=== PATIENT | female | born 1970 | race Caucasian/White ===

== ENCOUNTER 2019-02-14 09:12 | Emergency (ER) | payer BC, MEDICAID ==
[~2019-02-14] VITALS: Ht 167.6 cm; Wt 97.5 kg
[~2019-02-14 09:12] MED LIST: IBUPROFEN600 MG ORAL; IBUPROFEN800 M1 PO; NORCO 5-325 TA1 EACH ORAL
--- NOTE | 2019-02-14 09:30 | NUR ---
ED Nurse Note: pt presents to ED with R elbow and L forearm & wrist pain after sustaining a fall on Wednesday. pt reports tripping on a step and landing onto her arms. pt reports 5/10 px that worsens with movement and palpation. pt denies LOC, visual disturbances or dizziness prior to the fall. 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
[2019-02-14 09:35] VITALS: BP 130/92
--- NOTE | 2019-02-14 09:56 | Emergency Room Report ---
History of Present Illness General Chief Complaint: Upper Extremity Injury Source: Patient Present Illness HPI Patient presents with a fall that occurred on Wednesday Patient was going up some stairs when she had a fall hitting the left wrist and also the Right elbow The pain has been ongoing since then Pain to the left wrist is worse with any touch or movement Patient's discomfort to the right elbow is just at the distal humeral area However able to move her right arm in full flexion extension and supination Allergies: Coded Allergies: GLUTEN (Verified Allergy, Unknown, 02/14/19) Patient History Past Medical History: see triage record Reviewed Nursing Documentation: PMH: Agreed; PSxH: Agreed Nursing Documentation-PMH Past Medical History: No History, Except For Review of Systems All Other Systems: negative except mentioned in HPI Physical Exam Vital Signs Date Time Temp Pulse Resp B/P (MAP) Pulse Ox O2 Delivery O2 Flow Rate FiO2 02/14/19 09:17 98.4 72 17 130/92 (105) 99 Room Air Sp02 EP Interpretation: reviewed, normal General Appearance: well appearing, no apparent distress Head: normocephalic, atraumatic Eyes: bilateral eye PERRL, bilateral eye EOMI ENT: normal pharynx Neck: supple Respiratory: lungs clear, no respiratory distress, no retraction Cardiovascular #1: regular rate, rhythm Gastrointestinal: non tender, soft Musculoskeletal: other - Swelling to the left distal wrist dorsally pain with slight touch or any attempt of flexion or extension, vascularly and neurovascularly intact otherwise, right arm has full mobility Neurologic: alert, oriented x3 Skin: other - As above Lymphatic: no adenopathy Procedures Splinting Splinting : Consent: Verbal Location: The wrist Pre-Made Type: velcro Splint: volar Pre-Proc Neuro Vasc Exam: normal Post-Proc Neuro Vasc Exam: normal Patient Tolerated: Well Complications: None Medical Decision Making Diagnostic Impression: Primary Impression: Injury of upper extremity ER Course Given the history and exam x-ray imaging is obtained of the left wrist no obvious acute fractures are seen Given the patient's discomfort and clinical exam a splint is applied and the patient is stable for close outpatient follow-up Other X-Ray Diagnostic Results Other X-Ray Diagnostic Results : X-Ray ordered: Left wrist # of Views/Limited Vs Complete: 3 View Indication: Pain EP Interpretation: Yes Interpretation: no dislocation, no soft tissue swelling, no fractures Impression: No acute disease Electronically Signed by: José Luis Castro DO Last Vital Signs Date Time Temp Pulse Resp B/P (MAP) Pulse Ox O2 Delivery O2 Flow Rate FiO2 02/14/19 09:35 98.4 17 130/92 99 Room Air 02/14/19 09:17 72 Status: improved Disposition: HOME, SELF-CARE Condition: Improved Scripts Ibuprofen* (MOTRIN*) 600 Mg Tablet 600 MG ORAL Q8H PRN for For Pain, #20 TAB 0 Refills Prov: José Luis Castro DO 02/14/19 Additional Instructions: Patient is provided with the discharge instructions notified to follow up with primary doctor in the next 2-3 days otherwise return to the er with any worsening symptoms. Please note that this report is being documented using [email or web address] technology. This can lead to erroneous entry secondary to incorrect interpretation by the dictating instrument. José Luis Castro DO Feb 14, 2019 09:56
[2019-02-14] MEDS ORDERED: IBUPROFEN600 MG ORAL (10:43)
--- NOTE | 2019-02-14 10:45 | NUR ---
ED Nurse Note: wrist splint and THERESA bandage applied onto pt's L wrist and forearm without any complications
[2019-02-14 10:52] VITALS: BP 132/86
--- NOTE | 2019-02-14 10:52 | NUR ---
ED Nurse Note: Pt cleared by health care Provider for discharge. DC instructions/prescription was given and explained to pt and verbalized understanding of teachings. All medical deviecs such as ID band removed. Pt is AAO x4, ambulatory and left with all personal belongings.
--- NOTE | 2019-02-14 12:06 | Diagnostic Imaging Report ---
Clinical Indication:Traumatic pain from fall one day ago Technique: 3 views of the left wrist Comparison: None Findings: Bony alignment is normal. No acute fractures. No dislocations. Joint spaces are preserved. Impression: Negative
== END 2019-02-14 10:55 | disposition home or self-care (01) ==
LOC: EMR 09:57
DX: S69.92XA Unspecified injury of left wrist, hand and finger(s), initial encounter (principal); W19.XXXA Unspecified fall, initial encounter; Y92.9 Unspecified place or not applicable; M25.521 Pain in right elbow
CPT/HCPCS: 29125; 99283

== ENCOUNTER 2020-02-15 09:10 | Emergency (ER) | payer BC ==
[~2020-02-15] VITALS: Ht 170.2 cm; Wt 108.9 kg
--- NOTE | 2020-02-15 09:20 | NUR ---
ED Nurse Note: Patient ambulated to ED due to bilateral eye irritation x 2 days. Patient reports L eye pain, blurring of vision and tearing. Pt is AOx4, calm and cooperative to care, VSS, on RA, afebrile on triage.
[2020-02-15] MEDS ORDERED: Fluorescein Strips ONE (09:43)
[2020-02-15] MEDS ORDERED: Tetracaine 0.5% Opth 4ml Soln ONE (09:43)
[2020-02-15] MEDS ORDERED: Tetracaine 0.5% Opth 4ml Soln LEFT EYE ONE (09:45)
[2020-02-15] MEDS ORDERED: Fluorescein Strips LEFT EYE ONE (09:45)
--- NOTE | 2020-02-15 09:45 | NUR ---
ED Nurse Note: ERMD at bedside.
[2020-02-15 09:49] VITALS: BP 136/88
[2020-02-15] MEDS ORDERED: CILOXAN5 ML OP (10:04)
[2020-02-15] MEDS ORDERED: OLOPATADINE HCL5 ML OP (10:04)
[2020-02-15 10:16] VITALS: BP 128/84
--- NOTE | 2020-02-15 10:16 | NUR ---
ER DISCHARGE NOTE: Patient is cleared to be discharged per ERMD, pt is aox4, on room air, with stable vital signs. pt was given dc and prescription instructions, pt was able to verbalize understanding, pt id band removed. pt is able to ambulate with steady gait. pt took all belongings.
--- NOTE | 2020-02-15 11:25 | Emergency Room Report ---
History of Present Illness General Chief Complaint: Eye Problems Source: Patient Present Illness HPI Patient is a 49-year-old female who presents for increased left-sided high discomfort. Prior history of contact lens use. Reports having increased left- sided eye pain associate with increased tearing. Denies any eye discharge. Reports having increased eye pain. Patient denies any vomiting reports having m oderate headache. Reported history of gluten allergy. Denies any visual changes. Increased pain with movement. Had not been having any double vision. Denies any visual field loss. 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 COVID-19 Screening: Negative COVID-19 COVID-19 Testing Source: 3 weeks ago Patient History Past Medical History: see triage record Now: No Reviewed Nursing Documentation: PMH: Agreed; PSxH: Agreed Nursing Documentation-PMH Past Medical History: No History, Except For Review of Systems All Other Systems: negative except mentioned in HPI Physical Exam Vital Signs Date Time Temp Pulse Resp B/P (MAP) Pulse Ox O2 Delivery O2 Flow Rate FiO2 02/15/20 09:17 97.9 75 16 136/88 (104) 94 Room Air General Appearance: well appearing, no apparent distress, alert, GCS 15 Head: normocephalic, atraumatic Eyes: bilateral eye other - conjunctival injection left greater than right, pupil reactive intraocular pressure 18 mm no fluorescein uptake ENT: hearing grossly normal, normal voice Neck: full range of motion, supple Respiratory: no respiratory distress, speaking full sentences Musculoskeletal: no calf tenderness Neurologic: normal gait Psychiatric: mood/affect normal Skin: no rash Medical Decision Making Diagnostic Impression: Primary Impression: Conjunctivitis ER Course Patient presented for left eye pain. Differential diagnosis include was not limited to conjunctivitis, glaucoma, foreign body, corneal abrasion, iritis among others. Patient has a benign exam and does not appear to require any imaging or laboratory testing at this time. Patient has nonfocal neurologic exam. I appears to be somewhat red. Pupil is reactive. Patient had improvement in pain with topical anesthetics. Patient was advised to follow-up with ophthalmology in the next 1 to 2 days for recheck. She was given prescription for medications for possible contact lens related infection. Last Vital Signs Date Time Temp Pulse Resp B/P (MAP) Pulse Ox O2 Delivery O2 Flow Rate FiO2 02/15/20 10:16 97.9 78 17 128/84 98 Room Air Disposition: HOME, SELF-CARE Condition: Stable Scripts Ciprofloxacin HCl (Ciloxan) 5 Ml Drops 1 DROP OP EVERY 6 HOURS, #5 ML Prov: Bakari Alamo MD 02/15/20 Olopatadine HCl (Olopatadine HCl) 5 Ml Drops 5 ML OP TWICE A DAY, #5 ML Prov: Bakari Alamo MD 02/15/20 Referrals: NOT CHOSEN IPA/,REFERRING (PCP) Patient Instructions: Bacterial Conjunctivitis Bakari Alamo MD Feb 15, 2020 11:25
== END 2020-02-15 10:16 | disposition home or self-care (01) ==
LOC: EMR 09:53
DX: H10.9 Unspecified conjunctivitis (principal); Z91.018 Allergy to other foods
CPT/HCPCS: 99282